=== PATIENT | female | born 1985 | race Caucasian/White ===

== ENCOUNTER 2021-05-04 11:18 | Observation (INO) | payer OTHER ==
[2021-05-04 11:37] VITALS: BP 123/78
[2021-05-04 11:47] VITALS: PULSE 83
--- NOTE | 2021-05-04 13:15 | XRAY ---
Indication: Gestational diabetes. Positive Covid 19. Ultrasound biophysical profile exam performed. Single viable intrauterine with heart rate 151 BPM. Four-quadrant ZULY is 19.9 cm, largest pocket 8.8 cm. 2 points given for movements, tone, and amniotic fluid volume. 0 points for breathing. Impression: Total biophysical profile score is 6 out of 8.
== END 2021-05-04 13:00 | disposition home or self-care (01) ==
LOC: OB 11:18
PROVIDERS: ADMIT Obstetrics & Gynecology; ATTEND Obstetrics & Gynecology
DX: Z34.83 Encounter for supervision of other normal pregnancy, third trimester (principal); Z3A.37 37 weeks gestation of pregnancy
CPT/HCPCS: 76819

== ENCOUNTER 2021-05-07 10:05 | Observation (INO) | payer OTHER ==
[2021-05-07 10:55] VITALS: BP 122/76; PULSE 87
== END 2021-05-07 10:50 | disposition home or self-care (01) ==
LOC: OB 10:05
PROVIDERS: ADMIT Obstetrics & Gynecology; ATTEND Obstetrics & Gynecology
DX: Z34.83 Encounter for supervision of other normal pregnancy, third trimester (principal); Z3A.37 37 weeks gestation of pregnancy

== ENCOUNTER 2021-05-11 09:26 | Observation (INO) | payer OTHER ==
[2021-05-11 10:06] VITALS: BP 123/79; PULSE 82
== END 2021-05-11 11:00 | disposition home or self-care (01) ==
LOC: MED SURG 09:26
PROVIDERS: ADMIT Obstetrics & Gynecology; ATTEND Obstetrics & Gynecology
DX: Z34.83 Encounter for supervision of other normal pregnancy, third trimester (principal); Z3A.38 38 weeks gestation of pregnancy
CPT/HCPCS: 59025; G0378

== ENCOUNTER 2021-05-15 04:48 | Inpatient (IN) | payer OTHER ==
[2021-05-15] MEDS ORDERED: Lactated Ringers 1,000 ML IV SCH (06:00)
[2021-05-15 06:08] LABS: Hemoglobin 12.5 gm/dl (12.0-16.0); Mean Cell Volume 93.6 fl (78-100); Mean Corpuscular Hemoglobin 30.8 pg (26-32); Mean Corpuscular Hgb Concent. 32.9 g/dl (32-36); Mean Platelet Volume 11.6 fl (7.5-11.0); Platelet Count 122 K/mm3 (150-450); Red Blood Count 4.06 M/mm3 (4.1-5.4); Red Cell Distribution Width 12.9 % (11.5-14.0); White Blood Count 7.6 K/mm3 (4.0-10.5)
[2021-05-15 06:15] LABS: INR 0.94 (0.8-3.0); PROTIME 11.1 SECONDS (9.4-12.5)
[2021-05-15 06:17] LABS: PTT 26.5 SECONDS (25.1-36.5)
[2021-05-15] MEDS ORDERED: PHENYLEPHRINE HCL ONE (06:27)
[2021-05-15] MEDS ORDERED: Zofran 4 MG/2 ML VIAL ONE (06:27)
[2021-05-15] MEDS ORDERED: Ephedrine Sulfate 50 MG/ML ONE (06:27)
[2021-05-15 06:38] LABS: Appearance CLOUDY (CLEAR); Bacteria RARE /HPF (NEGATIVE); Bilirubin NEGATIVE (NEGATIVE); Blood NEGATIVE Ery/ul (0-5); Epithelial Cells RARE /HPF (FEW); Glucose NEGATIVE (NEGATIVE); Ketones NEGATIVE (NEGATIVE); Leukocyte Esterase NEGATIVE (NEGATIVE); Mucus SLIGHT /HPF (NEGATIVE); Nitrite NEGATIVE (NEGATIVE); Protein,Urine Dip NEGATIVE (Negative); Specific Gravity 1.024 (1.005-1.025); Urobilinogen NEGATIVE mg/dL (0-1)
[2021-05-15] MEDS ORDERED: Pitocin 10 UNITS/ML ONE (06:39)
[2021-05-15 06:43] LABS: Amphetamine,Urine NEGATIVE (NEGATIVE); Barbiturate,Urine NEGATIVE (NEGATIVE); Benzodiazepine,Urine NEGATIVE (NEGATIVE); Cocaine,Urine NEGATIVE (NEGATIVE); Methadone,Urine NEGATIVE (NEGATIVE); Opiate,Urine NEGATIVE (NEGATIVE); PCP,Urine NEGATIVE (NEGATIVE); THC,Urine POSITIVE (NEGATIVE)
[2021-05-15] MEDS ORDERED: Decadron 4 MG INJ ONE (07:21)
[2021-05-15] MEDS ORDERED: Naropin 0.5% 30 ML VIAL ONE (07:24)
[2021-05-15] MEDS ORDERED: Astramorph-Pf 5 MG/10 ML ONE (07:27)
[2021-05-15] MEDS ORDERED: Pepcid 20 MG VIAL IV SCH (08:00)
[2021-05-15] MEDS ORDERED: CEFAZOLIN 2 GM-D5W BAG** 2 GM/50 ML ML IV SCH (08:00)
[2021-05-15] MEDS ORDERED: SOD CITRATE-CITRIC ACID SOLN PO SCH (08:00)
[2021-05-15] MEDS ORDERED: Reglan 10 MG/2 ML IV SCH (08:00)
[2021-05-15] MEDS ORDERED: SUBLIMAZE 100 MCG/2 ML ONE ×2 (09:30→10:12)
[2021-05-15] MEDS ORDERED: Quelicin Fliptop 200 MG/10 ML ONE (09:41)
[2021-05-15] MEDS ORDERED: DIPRIVAN 200 MG/20 ML IV ONE (09:41)
[2021-05-15 10:41] LABS: Appearance SLIGHTLY CLOUDY (CLEAR); Bilirubin NEGATIVE (NEGATIVE); Blood NEGATIVE Ery/ul (0-5); Epithelial Cells RARE /HPF (FEW); Glucose NEGATIVE (NEGATIVE); Ketones MODERATE (NEGATIVE); Leukocyte Esterase NEGATIVE (NEGATIVE); Mucus SLIGHT /HPF (NEGATIVE); Nitrite NEGATIVE (NEGATIVE); Protein,Urine Dip NEGATIVE (Negative); Specific Gravity 1.018 (1.005-1.025); Urobilinogen NEGATIVE mg/dL (0-1); WBC 0-2 /HPF (0-5)
[2021-05-15] MEDS ORDERED: CLARITIN 10 MG PO PRN (11:00)
[2021-05-15] MEDS ORDERED: PERCOCET TABLET 5/325MG PO PRN (11:00)
[2021-05-15] MEDS ORDERED: Narcan 0.4 MG/ML IV PRN (11:00)
[2021-05-15] MEDS ORDERED: MORPHINE SULFATE 2 MG INJ IV PRN (11:00)
[2021-05-15] MEDS ORDERED: Sodium Chloride 0.9% 10 ML FLUSH Syringe IJ PRN (11:00)
[2021-05-15] MEDS ORDERED: DEMEROL 50 MG IV PRN (11:00)
[2021-05-15] MEDS ORDERED: HOLD NARCOTIC ANALGESICS AND SEDATIVES X24 HR MC PRN (11:00)
[2021-05-15] MEDS ORDERED: BENADRYL 50 MG/ML IV PRN (11:00)
[2021-05-15] MEDS ORDERED: Nubain 10 MG/ML IV PRN (11:00)
[2021-05-15 11:17] LABS: Bacteria FEW /HPF (NEGATIVE); Oval Fat Body,Urine NO; RBC 0-2 /HPF (0-2)
[2021-05-15] MEDS: Dextrose 5%-Lr IV Solution 1000 ML 1,000 ML IV SCH ×2 (11:53→20:52)
[2021-05-15] MEDS ORDERED: Zofran 4 MG/2 ML VIAL IV PRN (12:00)
[2021-05-15] MEDS ORDERED: Dermoplast Spray TP PRN (12:00)
[2021-05-15] MEDS ORDERED: Mylicon 80MG PO PRN (12:00)
[2021-05-15] MEDS ORDERED: LANSINOH 40 GM TOP PRN (12:00)
[2021-05-15] MEDS: THERAGRAN MULTIVITAMIN PO SCH (14:29)
[2021-05-15] MEDS: CEFAZOLIN 2 GM-D5W BAG** 2 GM/50 ML ML IV SCH (17:14)
[2021-05-15] MEDS: MOTRIN 400 MG PO PRN (20:53)
[2021-05-15] MEDS: BUSPAR 5 MG PO SCH (20:53)
[2021-05-15] MEDS: Colace 100 MG PO SCH (20:53)
[2021-05-16] MEDS: CEFAZOLIN 2 GM-D5W BAG** 2 GM/50 ML ML IV SCH (01:55)
[2021-05-16] MEDS: TYLENOL EXTRA STRENGTH 500 MG PO PRN ×3 (02:03→23:23)
[2021-05-16] MEDS: MOTRIN 400 MG PO PRN ×3 (06:10→20:25)
[2021-05-16 06:27] VITALS: O2SAT 98
[2021-05-16 07:08] LABS: Absolute Neutrophil Ct (ANC) 7.03 (1.4-6.9); Basophil (Absolute #) 0.01 (0-0.4); Eosinophil % 0.3 % (0.00-5.0); Eosinophil (Absolute #) 0.03 (0-0.5); Hematocrit 36.9 % (35-47); Hemoglobin 11.8 gm/dl (12.0-16.0); Lymphocytes % 21.3 % (24.0-44.0); Mean Cell Volume 96.3 fl (78-100); Mean Corpuscular Hemoglobin 30.8 pg (26-32); Mean Platelet Volume 10.7 fl (7.5-11.0); Monocyte (Absolute #) 0.68 (0.0-1.3); Monocytes % 6.9 % (0.0-12.0); Neutrophil % 71.4 % (36.0-66.0); Platelet Count 130 K/mm3 (150-450); Red Blood Count 3.83 M/mm3 (4.1-5.4); White Blood Count 9.9 K/mm3 (4.0-10.5)
[2021-05-16 08:23] LABS: HBsAg Screen Negative (Negative)
[2021-05-16] MEDS ORDERED: NORCO 5/325 MG PO PRN (09:00)
--- NOTE | 2021-05-16 09:21 | PCM.NOTE ---
Date and Time: 05/16/21918 Subjective Assessment: pod 1 sp csection pt resting in chair and doing well. pt ambulating and tolerating diet. vss afebrile abd; soft incison c/d/intact uterus; firm lochia; mild a/p sp csection pod 1 anticipate discharge tomorrow expectant management OBJECTIVE DATA Vital Signs: Vital Signs - 24 hr Temp Pulse Resp BP Pulse Ox 05/16/21 08:00 99.4 F 71 18 109/70 05/16/21 06:28 97.8 F 65 18 115/76 98 05/16/21 06:00 98 05/16/21 04:44 96 05/16/21 03:54 96 05/16/21 03:00 98 05/16/21 02:08 97.1 F 77 20 115/71 99 05/16/21 02:00 98 05/16/21 01:00 98 05/16/21 00:00 62 18 98 05/15/21 23:00 98 05/15/21 20:00 98.1 F 82 18 126/86 96 05/15/21 18:00 99 05/15/21 17:00 99 05/15/21 16:00 100 05/15/21 15:00 98.0 F 81 18 117/64 99 05/15/21 14:00 98.0 F 74 18 124/67 100 05/15/21 13:30 18 119/75 99 05/15/21 13:00 97.5 F 70 18 126/76 98 05/15/21 12:30 97.5 F 97 H 18 127/76 98 05/15/21 12:00 97.5 F 90 18 119/79 99 05/15/21 11:30 101 H 18 124/78 98 05/15/21 11:15 99 H 18 117/72 94 L 05/15/21 11:00 97.5 F 85 18 120/74 98 Pain Assessment - Last Documented Pain Intensity [Anterior] 4 Pain Intensity 4 Pain Scale Used 0-10 Pain Scale Intake and Output: Intake & Output 05/13/21 05/14/21 05/15/21 05/16/21 11:59 11:59 11:59 11:59 Intake Total 3664 Output Total 3700 Balance -36 Weight 86.636 kg Lab Results: Lab Results-Last 24 Hours 05/15/21 05/15/21 05/16/21 Range/Units 06:00 09:04 07:00 WBC 9.9 (4.0-10.5) K/mm3 RBC 3.83 L (4.1-5.4) M/mm3 Hgb 11.8 L (12.0-16.0) gm/dl Hct 36.9 (35-47) % MCV 96.3 (78-100) fl MCH 30.8 (26-32) pg MCHC 32.0 (32-36) g/dl RDW 13.0 (11.5-14.0) % Plt Count 130 L (150-450) K/mm3 MPV 10.7 (7.5-11.0) fl Gran % 71.4 H (36.0-66.0) % Eos # (Auto) 0.03 (0-0.5) Absolute Lymphs (auto) 2.10 (1.0-4.6) Absolute Monos (auto) 0.68 (0.0-1.3) Lymphocytes % 21.3 L (24.0-44.0) % Monocytes % 6.9 (0.0-12.0) % Eosinophils % 0.3 (0.00-5.0) % Basophils % 0.1 (0.0-0.4) % Absolute Granulocytes 7.03 H (1.4-6.9) Basophils # 0.01 (0-0.4) Urine Color YELLOW (YELLOW) Urine Appearance SLIGHTLY CLOUDY (CLEAR) Urine pH 7.0 (5-6) Ur Specific [place] 1.018 (1.005-1.025) Urine Protein NEGATIVE (Negative) Urine Ketones MODERATE (NEGATIVE) Urine Blood NEGATIVE (0-5) [place]ul Urine Nitrite NEGATIVE (NEGATIVE) Urine Bilirubin NEGATIVE (NEGATIVE) Urine Urobilinogen NEGATIVE (0-1) mg/dL Ur Leukocyte Esterase NEGATIVE (NEGATIVE) Urine WBC (Auto) 0-2 (0-5) /HPF Urine RBC (Auto) 0-2 (0-2) /HPF U Epithel Cells (Auto) RARE (FEW) /HPF Urine Bacteria (Auto) FEW (NEGATIVE) /HPF Urine Mucus (Auto) SLIGHT (NEGATIVE) /HPF Ur Oval Fat Bodies Auto NO Urine Glucose NEGATIVE (NEGATIVE) mg/dL Hep Bs Antigen Negative (Negative) Multi-Disciplinary Progress Notes: Multi-Disciplinary Progress Notes 05/15/21 09:38 Respiratory Note by Guerline Oneil [id number] STANDBY FOR PER PROTOCOL NO COMPLICATIONS Initialized on 05/15/21 09:38 - END OF NOTE
[2021-05-16] MEDS ORDERED: [UNRECOGNIZED DRUG - REMARK] PO SCH (10:00)
[2021-05-16] MEDS: BUSPAR 5 MG PO SCH ×2 (10:38→21:43)
[2021-05-16] MEDS: FERREX 150 PO SCH (10:39)
[2021-05-16] MEDS: THERAGRAN MULTIVITAMIN PO SCH (10:39)
[2021-05-16] MEDS: Colace 100 MG PO SCH ×2 (10:39→21:43)
[2021-05-16] MEDS ORDERED: MOTRIN 400 MG PO PRN (11:09)
[2021-05-17] MEDS: MOTRIN 400 MG PO PRN ×2 (03:54→11:57)
--- NOTE | 2021-05-17 07:58 | PCM.NOTE ---
Date and Time: 05/17/21 0757 Subjective Assessment: POD 2 PT RESTING IN BED AND DOING WELL AMBULATING AND TOLERATING DIET VSS AFEBRILE ABD; SOFT INCISION C/D/INTACT UTERUS; FIRM LOCHIA; MILD A/P SP CSECTION POD 2 DC HOME TODAY FU OFFICE 2 WKS OBJECTIVE DATA Vital Signs: Vital Signs - 24 hr Temp Pulse Resp BP BP 05/16/21 21:30 97.9 F 85 18 131/81 05/16/21 14:00 98.6 F 68 18 114/77 05/16/21 08:00 99.4 F 71 18 109/70 Pain Assessment - Last Documented Pain Intensity [Anterior] 4 Pain Intensity 4 Pain Scale Used 0-10 Pain Scale Intake and Output: Intake & Output 05/14/21 05/15/21 05/16/21 05/17/21 11:59 11:59 11:59 11:59 Intake Total 3664 500 Output Total 3700 Balance -36 500 Weight 86.636 kg Lab Results: Lab Results-Last 24 Hours 05/15/21 Range/Units 06:00 Hep Bs Antigen Negative (Negative) Assessment/Plan (1) Status post repeat low transverse section Current Visit: Yes Status: Acute Code(s): Z98.891 - HISTORY OF UTERINE SCAR FROM PREVIOUS SURGERY
--- NOTE | 2021-05-17 08:01 | PCM.DS ---
Discharge Summary Date of Admission: 05/15/21 04:48 Admitting Physician: TAMIKA MCRAE DO Consults: Consults on Case 05/15/21 06:00 Notify Physician OF ADMISSION 05/15/21 12:55 Navigation ONCE 05/15/21 18:08 Notify Anesthesia Provider PRN Primary Care Provider: NO FAMILY DOCTOR Allergies Allergies No Known Drug Allergies Allergy (Verified 05/15/21 05:11) Hospital Summary - Hospital Course Hospital Course: PT ADMITTED ON MAY 15 FOR UNDERGOING REPEAT CSECTION AND UNDERWENT PROCEDURE WITHOUT COMPLICATION AND DELIVERED LIVE BABY BOY. PT DURING POSTOP PERIOD DID WELL AND AT THIS TIME STABLE FOR DISCHARGE WITH STABLE HGB LEVEL. ALL QUESTIONS ANSWERED TO HER SATISFACTION AND INCISION C/D/INTACT. PT WAS ADVISED TO FU IN OFFICE IN 2 WKS AND DID NOT REQUIRE NARCOTIC PAIN MANAGEMENT UPON DISCHARGE SHE STATES SHE DID NOT NEED IT AND WOULD TAKE IBUPROFEN AND TYLENOL. - Vitals & Intake/Output Vital Signs: Vital Signs Temperature 97.9 F 05/16/21 21:30 Pulse Rate 85 05/16/21 21:30 Respiratory Rate 18 05/16/21 21:30 Blood Pressure 131/81 05/16/21 21:30 O2 Sat by Pulse Oximetry 98 05/16/21 06:28 Intake & Output: Intake & Output 05/14/21 05/15/21 05/16/21 05/17/21 11:59 11:59 11:59 11:59 Intake Total 3664 500 Output Total 3700 Balance -36 500 Weight 86.636 kg - Lab Result Diagrams: 05/16/21 07:00 Lab Results-Last 24 Hrs: Lab Results-Last 24 Hours 05/15/21 Range/Units 06:00 Hep Bs Antigen Negative (Negative) Micro Results-Entire Visit: Microbiology 05/15/21 09:04 Urine Culture - Preliminary Catherized NO GROWTH TO DATE - Procedures and Test Procedures and Tests throughout Hospitalization: Therapy Orders & Screens 05/15/21 09:37 Standby ROUTINE Comment: Diagnosis: Rerpeat Final Diagnosis/Problem List - Final Discharge Diagnosis/Problem (1) Status post repeat low transverse section Current Visit: Yes Status: Acute Code(s): Z98.891 - HISTORY OF UTERINE SCAR FROM PREVIOUS SURGERY - Discharge Disposition: Home, Self-Care Condition: Stable Prescriptions: No Action Buspirone HCl 5 mg [Buspar 5 mg] 10 mg PO BID Vit No.130/Iron/Folic [ Tablet] 1 tab PO DAILY Follow up with: DOCTOR,NO FAMILY [Primary Care Provider] - TAMIKA MCRAE DO [ACTIVE STAFF] - 2 weeks (KEEP INCISION CLEAN AND DRY NO HEAVY LIFTING NO DRIVING FOR 10 DAYS)
[2021-05-17] MEDS: BUSPAR 5 MG PO SCH (11:56)
[2021-05-17] MEDS: FERREX 150 PO SCH (11:57)
[2021-05-17] MEDS: Colace 100 MG PO SCH (11:57)
[2021-05-17] MEDS: THERAGRAN MULTIVITAMIN PO SCH (11:57)
[2021-05-17 12:53] VITALS: PULSE 94
[2021-05-17] MEDS: TYLENOL EXTRA STRENGTH 500 MG PO PRN (16:08)
[2021-05-17 16:53] VITALS: BP 131/81
--- NOTE | 2021-05-18 10:26 | OP ---
SURGERY DATE/TIME: 05/15/2020 0850 PREOPERATIVE DIAGNOSIS: Intrauterine at 39 weeks gestation with previous section, declined trial of labor. POSTOPERATIVE DIAGNOSIS: Intrauterine at 39 weeks gestation with previous section, declined trial of labor. PROCEDURE: Repeat section, low flap transverse uterine incision, Pfannenstiel skin incision. SURGEON: Christ Parnell D.O. MARKET DIRECTOR: Shai Sumner, surgical pathologist. ANESTHESIA: Spinal which was converted to general. ESTIMATED BLOOD LOSS: 400 cc. COMPLICATIONS: None. INDICATIONS: The risks, benefits, indications and alternatives of the procedure were reviewed with the patient prior to procedure. The patient understood the risk of infection, bleeding, bowel injury, bladder injury, ureteral injury, pelvic infection associated with the surgery and desires to have this surgery as a possible means to alleviate her current medical condition. DESCRIPTION OF PROCEDURE AND FINDINGS: At this point the patient is taken to the operating room where her spinal anesthesia was found to be adequate. She was then prepared and draped in normal sterile fashion in the dorsal supine position with leftward tilt. A Pfannenstiel skin incision is made with a scalpel and carried through the underlying layer of the fascia with a Bovie. However at this time, the patient noted to feeling a lot more discomfort with the incision and at this point the patient was converted to general anesthesia. From this point, the fascia was then incised in the midline and the incision extended laterally with Triana scissors. The superior aspect of the fascial incision was then grasped Dot clamps elevated and the underlying rectus muscles dissected off bluntly. Attention is then turned to the inferior aspect of this incision which in similar fashion was grasped, tented up with Dot clamps and the rectus muscles dissected off bluntly. The rectus muscles were then at the midline and the peritoneum identified, tented up and entered sharply with Metzenbaum scissors. The peritoneal incision was then extended superiorly and inferiorly with good visualization of the bladder. The bladder blade was then inserted and the vesicouterine peritoneum identified, grasped with a pickup and entered sharply with Metzenbaum scissors. The incision was then extended laterally and the bladder flap created digitally. The bladder blade was then re-inserted and the lower uterine segment incised in transverse fashion with a scalpel. The uterine incision was then extended laterally with bandage scissors. The bladder blade was then removed and the infants head was delivered atraumatically. The nose and mouth were suctioned with bulb suction and the cord clamped and cut. The infant was then handed off to the awaiting nurses. The placenta was then removed manually. The uterus exteriorized and cleared of all clots and debris. The uterine incision was repaired with 1-0 chromic in a running locked fashion. A second layer of the same suture was used to obtain excellent hemostasis. The uterus is then returned to the abdomen and the gutters were cleared of all clots and at this point the peritoneal muscles closed in interrupted fashion using 2-0 chromic suture. The fascia was re-approximated with 0 Vicryl in running fashion. The subcutaneous layer was closed with 3-0 plain suture and the skin was closed with absorbable sandra called INSORB. The patient tolerated the procedure well. Sponge, lap, needle and instrument counts were correct x2. The patient was then taken to the recovery room in stable condition. The patient delivered a live baby boy at 0920 hours. The weight of the baby was 9 pounds 3 ounces. 's were 9 at 1 minute and 9 at 5 minutes.
== END 2021-05-17 17:50 | disposition home or self-care (01) | DRG 788 ==
LOC: OB 04:48 → EDSTATUS 08:21
PROVIDERS: ADMIT Obstetrics & Gynecology; ATTEND Obstetrics & Gynecology
PROC: 10D00Z1 Extraction of Products of Conception, Low, Open Approach (ICD-10-PCS; principal; 2021-05-16)
DX: O34.219 Maternal care for unspecified type scar from previous cesarean delivery (principal); O34.03 Maternal care for unspecified congenital malformation of uterus, third trimester; Z3A.39 39 weeks gestation of pregnancy; Z37.0 Single live birth
CPT/HCPCS: 36415; 64488; 76819; 76937; 80307; 81001; 85025; 85027; 85610; 85730; 86850; 86900; 86901; 87086; 87340; 94799; 99000; J0330; J0690; J1100; J2274; J2370; J2405; J2590; J2704; J2795; J3010; L0625; A9270-GY